=== PATIENT | male | born 1960 | race Caucasian/White ===

== ENCOUNTER 2023-12-27 00:38 | Emergency (ER) | payer MEDICAID, SELFPAY ==
[2023-12-27] VITALS (9 sets, daily range): BP systolic 143–174; BP diastolic 90–110; PULSE 60–83; RESP 18–19; TEMP 36.9–37; O2SAT 88–98; BMI 24.3
--- NOTE | 2023-12-27 00:39 | XR_ITS ---
PROCEDURE INFORMATION: Exam: XR Right Knee Exam date and time: 12/27/2023 12:48 AM Age: 63 years old Clinical indication: Pain; Knee; Right; Additional info: Bumped knee and foot, having pain but ambulating TECHNIQUE: Imaging protocol: Radiologic exam of the right knee. Views: 3 views. COMPARISON: No relevant prior studies available. FINDINGS: Bones/joints: Normal. Soft tissues: Normal. IMPRESSION: No acute findings.
--- NOTE | 2023-12-27 00:42 | HMH.EDGENADL ---
Discharge Plan Disposition Patient Disposition: Home, Self-Care Condition: Good Referrals Follow up/Referrals: Provider,Madeline, [Primary Care Provider] - See instructions Sergio Dubon MD [Staff Physician] - See instructions (needs PCP, has HTN found in ER, has mild kidney dysfunction, no PCP in years) Activity Restrictions/Add. Instructions Additional Instructions/Restrictions: You were evaluated in the ER and are appropriate for discharge at this time. Call Dr. Dubon's office and make an appointment to recheck your blood pressure and kidney function. Return to the ER with new, worsening, or otherwise concerning symptoms. Clinical Impressions Clinical Impression: Knee pain, right, Foot pain, right Print Language Print Language: [place] Discharge ED Provider: Sergio Galo General Adult HPI General Chief complaint: PAIN Stated complaint: R knee pain Time Seen by Provider: 12/27/23 00:42 History of Present Illness HPI narrative: 63-year-old male who reports no known medical problems, no daily medications, no known drug allergies presents to the ER with complaints of right knee pain and right foot pain. Patient was brought in by EMS after being found sitting outside of police station. Ultimately patient requested hospital evaluation. Patient states he had been moving furniture and bumped his right knee. His right foot also has pain. He has been ambulatory. Injury happened 1 to 2 days ago. He has not been taking any medications for his pain. He states the knee was initially swollen but has improved. Patient had reported to EMS that he thought he was exposed to bug spray and could have been exposed to too much of it over 24 hours ago when they treated his apartment, but he does not report any symptoms such as headache, dizziness, sweating, chest pain, difficulty breathing, nausea, vomiting, diarrhea, constipation, dry mouth, numbness, tingling, weakness. He thought he potentially had bug bites but cannot identify any skin changes or rash from these bug bites. His complaint at this time is the right knee pain and foot pain. Related Data Allergies Allergy/AdvReac Type Severity Reaction Status Date / Time No Known Allergies Allergy Verified 12/27/23 01:02 [facility] Disclaimer: The information contained in this section may have been updated after the patient was seen, as this information can be updated by other users. Social History Smoking Status: Unknown if ever smoked alcohol intake: never current occupational status: unemployed Travel in the last 8 weeks: None ROS Obtained: Yes All systems reviewed & no additional complaints except as documented Positive ROS per HPI Physical Exam General General appearance: alert and in no apparent distress Comment: Appears older than stated age Head Head exam: atraumatic and normocephalic Eye Eye exam: Present PERRL and EOMI; Absent conjunctival redness, conjunctival injection or nystagmus ENT ENT exam: Present normal oropharynx and mucous membranes moist Neck Neck exam: Present normal inspection and full ROM; Absent tenderness Chest Chest inspection: Present symmetric chest wall rise; Absent tenderness Respiratory Respiratory exam: Present normal lung sounds bilaterally; Absent respiratory distress, wheezes or stridor Cardiovascular Cardiovascular exam: Present regular rate and normal rhythm Abdominal Exam Abdominal exam: Present soft; Absent distention, tenderness, guarding or rebound Extremities Exam Extremities exam: Present full ROM, tenderness (Mild tenderness with palpation of the right knee, diffuse, also mild tenderness with palpation of the distal right foot. No traumatic findings on exam such as bruising, deformity, crepitus, or swelling) and other (No ligamentous laxity appreciated on exam of the right knee, extensor mechanism intact); Absent edema, joint swelling or calf tenderness Neurological Exam Neurological exam: Present alert, oriented X3, CN II-XII intact and normal gait; Absent motor sensory deficit Psychiatric Psychiatric exam: Present normal affect and normal mood Skin Skin exam: Present warm and dry; Absent rash (No bug bites appreciated on complete skin exam, no rash, no induration, no erythema) or erythema Medical Decision Making Medical Records Screening: Per USPSTF and CDC recommendations, given the prevalence of disease in our region, it is our hospital?s policy to screen for HIV and viral Hepatitis for all patients aged 18 and over and those with ongoing risk factors. Alexis Inquiry Pt receiving controlled substance: No Vital Signs: 12/27/23 00:38 12/27/23 01:00 12/27/23 02:01 Temperature 98.5 F Temperature Source Oral Pulse Rate Pulse Rate [Right Brachial] 83 Respiratory Rate 19 Blood Pressure 164/107 H 152/97 H Blood Pressure [Right Arm] 168/102 H Blood Pressure Mean 126 115 Blood Pressure Mean [Right Arm] 124 Blood Pressure Source Blood Pressure Source [Right Arm] Automatic Cuff Blood Pressure Position Blood Pressure Position [Right Arm] Sitting 02 Sat by Pulse Oximetry 98 Oxygen Delivery Method Room Air 12/27/23 02:31 12/27/23 03:01 12/27/23 03:31 Temperature Temperature Source Pulse Rate 60 62 Pulse Rate [Right Brachial] Respiratory Rate Blood Pressure 147/98 H 143/90 H 168/96 H Blood Pressure [Right Arm] Blood Pressure Mean 124 Blood Pressure Mean [Right Arm] Blood Pressure Source Blood Pressure Source [Right Arm] Blood Pressure Position Blood Pressure Position [Right Arm] 02 Sat by Pulse Oximetry 88 L 94 L Oxygen Delivery Method 12/27/23 04:01 12/27/23 05:00 12/27/23 05:25 Temperature 98.6 F Temperature Source Oral Pulse Rate 68 65 74 Pulse Rate [Right Brachial] Respiratory Rate 18 Blood Pressure 174/110 H 143/90 H Blood Pressure [Right Arm] Blood Pressure Mean Blood Pressure Mean [Right Arm] Blood Pressure Source Automatic Cuff Blood Pressure Source [Right Arm] Blood Pressure Position Supine Blood Pressure Position [Right Arm] 02 Sat by Pulse Oximetry 95 93 L Oxygen Delivery Method Room Air Lab Data Lab Results 12/27/23 01:12: WBC 7.8, RBC 4.37 L, Hgb 12.8 L, Hct 40.0 L, MCV 91.6, MCH 29.4, MCHC 32.1, RDW 14.3, Plt Count 306, MPV 6.9 L, Neut % (Auto) 68.8, Lymph % (Auto) 20.9, [place] % (Auto) 7.2, Eos % (Auto) 2.4, Baso % (Auto) 0.6, Neut # (Auto) 5.4, Lymph # (Auto) 1.6, [place] # (Auto) 0.6, Eos # (Auto) 0.2, Baso # (Auto) 0.1, PT 10.4, INR 0.92, Sodium 136, Potassium 3.7, Chloride 106, Carbon Dioxide 29, Anion Gap 4.7 L, BUN 20, Creatinine 1.70 H, Estimated Creat Clear 39, Estimated GFR 41 L, Est GFR ( Amer) 49 L, Glucose 100, Calcium 9.0, Total Bilirubin 0.7, AST 22, ALT 12, Alkaline Phosphatase 137 H, Total Protein 6.7, Albumin 4.1, Globulin 2.6, Albumin/Globulin Ratio 1.6 12/27/23 03:59: Sodium 134 L, Potassium 3.9, Chloride 108 H, Carbon Dioxide 24, Anion Gap 5.9, BUN 19, Creatinine 1.40 H, Estimated Creat Clear 48, Estimated GFR 51 L, Est GFR ( Amer) 62 D, Glucose 95, Calcium 8.7 12/27/23 01:12 12/27/23 03:59 Orders (Tests/Meds): ED MEDICATIONS Discontinued Medications Generic Name Dose Route Start Last Admin Trade Name Carine PRN Reason Stop Dose Admin Acetaminophen 1,000 mg 12/27/23 01:17 12/27/23 01:19 Acetaminophen 500mg Tab PO 12/27/23 01:18 1,000 mg ONCE ONE Administration Lactated Ringer's 1,000 mls @ 999 mls/hr 12/27/23 02:14 12/27/23 02:16 Lactated Ringer's 1000 Ml Bag IV 12/27/23 03:14 999 mls/hr .Q1H1M ONE Administration Ibuprofen 600 mg 12/27/23 01:17 12/27/23 01:19 Ibuprofen 600 Mg Tablet PO 12/27/23 01:18 600 mg ONCE ONE Administration ORDERS Category Date Time Status Foot XR right minimum 3 views [XR foot RT min 3V] Stat Exams 12/27/23 02:14 Completed Knee XR right 3 views [XR knee RT 3V] Stat Exams 12/27/23 00:39 Completed BMP [Basic Metabolic Panel] Stat Lab 12/27/23 03:59 Completed CBC w/Auto Diff [Complete Blood Count Auto Diff] Stat Lab 12/27/23 01:12 Completed CMP [Comprehensive Metabolic Panel] Stat Lab 12/27/23 01:12 Completed PT INR [Prothrombin Time INR] Stat Lab 12/27/23 01:12 Completed Medical Decision Narrative: In summary, 63-year-old male with no known medical history presents to the emergency department today with primary concerns of right knee pain and right foot pain though he did also report concerns of being exposed to too much bug spray but is asymptomatic. On initial evaluation patient is hemodynamically stable, afebrile, mild tenderness to palpation without traumatic findings of the right knee and foot, patient is ambulatory, no neurologic deficits, thorough physical exam is otherwise benign. I do not appreciate any findings of toxidrome an am reassured that patient is feeling well and well-appearing 24 hours after the potential exposure. Differential diagnosis includes but is not limited to fracture, dislocation, soft tissue injury, sprain, ligamentous injury, I considered the possibility of anemia, electrolyte abnormality, kidney or liver dysfunction if patient did have toxic exposure. UDS unavailable at this time however this would not be valuable in the setting of concern for pesticide toxicity anyway. Many pesticides could cause organophosphate poisoning however there is no evidence of this on exam. Based on these concerns, I ordered basic serum labs, x-ray imaging. Patient received Tylenol, ibuprofen, LR for treatment. Labs personally reviewed demonstrate no leukocytosis, mild anemia, platelets normal, CMP demonstrated creatinine 1.70, no baseline for comparison. Given patient presented with mild hypertension, his elevated creatinine is likely baseline, however fluids are being administered and creatinine will be rechecked. X-rays of the right lower extremity were personally interpreted and do not demonstrate acute osseous injury though there are degenerative changes. See radiology read for final interpretation. On reassessment patient feels improved and is resting comfortably. Recheck BMP demonstrates creatinine improvement to 1.40. Blood pressure has also spontaneously improved in the ER. Vitals and clinical status continued to be stable. No concern for toxidrome. Patient reports his old PCP years ago and he has never established care with a new PCP. He was offered referral within our system which he accepted. He was referred to Dr. Dubon for outpatient follow-up and primary care. Patient is appropriate for discharge at this time. Patient was given instructions on symptomatic management, follow up instructions, and return precautions for the emergency department. Patient indicated understanding and was discharged in stable condition. Critical Care Critical Care Time Critical Care Time: No
--- NOTE | 2023-12-27 00:53 | PC.NURSE ---
Rad at bedside
[2023-12-27] MEDS: ACETAMINOPHEN 500MG TAB 1000 MG PO (01:19)
[2023-12-27] MEDS: IBUPROFEN 600 MG TABLET PO (01:19)
[2023-12-27 01:26] LABS: Basophils # 0.1 K/mm3 (0-0.2); Basophils % 0.6 % (0.1-2.0); Eosinophils # 0.2 K/mm3 (0.0-0.4); Eosinophils % 2.4 % (0.1-12.0); Hemoglobin 12.8 g/dL (14.1-18.0); Lymphocytes # 1.6 K/mm3 (0.7-4.5); Lymphocytes % 20.9 % (10-50); Mean Corpuscular HGB Conc 32.1 g/dL (31.8-35.4); Mean Corpuscular Hemoglobin 29.4 pg (27.0-31.2); Mean Corpuscular Volume 91.6 fl (80-94); Mean Platelet Volume 6.9 fl (7.4-10.4); Monocytes # 0.6 K/mm3 (0.1-1.0); Monocytes % 7.2 % (1.7-9.3); Neutrophils # 5.4 K/mm3 (1.8-7.8); Neutrophils % 68.8 % (37.0-80.0); Platelet Count 306 K/mm3 (142-424); Red Blood Count 4.37 M/mm3 (4.60-6.20); Red Cell Distribution Width 14.3 % (11.5-17.5); White Blood Count 7.8 K/mm3 (4.8-10.8)
[2023-12-27 01:32] LABS: Alanine Aminotransferase 12 U/L (12-78); Albumin Level 4.1 g/dl (3.5-5.0); Albumin/Globulin Ratio 1.6 (1.1-1.8); Alkaline Phosphatase 137 U/L (38-126); Anion Gap 4.7 mEq/L (5-15); Aspartate Amino Transferase 22 U/L (17-59); Bilirubin,Total 0.7 mg/dl (0.2-1.3); Blood Urea Nitrogen 20 mg/dl (9-20); Carbon Dioxide 29 mmol/L (22.0-30.0); Chloride 106 mmol/L (98-107); Creatinine Clearance Estimated 39 mL/min (50-200); Estimated Glomerular Filt Rate 41 ml/min (>60); GFR (African American) 49 ML/MIN (>60); Globulin 2.6 g/dL (1.3-3.2); Glucose 100 mg/dl (74-100); INR 0.92 (0.9-1.1); Potassium 3.7 mmoL/L (3.5-5.1); Prothrombin Time 10.4 seconds (10.1-12.5); Sodium 136 mmol/L (136-145); Total Protein,Serum 6.7 g/dl (6.3-8.2)
--- NOTE | 2023-12-27 02:14 | XR_ITS ---
PROCEDURE INFORMATION: Exam: XR Right Foot Exam date and time: 12/27/2023 2:24 AM Age: 63 years old Clinical indication: Pain; Foot; Right; Additional info: R foot pain TECHNIQUE: Imaging protocol: Radiologic exam of the right foot. Views: 3 or more views. COMPARISON: CR XR KNEE RT 3V 12/27/2023 12:48 AM FINDINGS: Bones/joints: There is a hallux valgus deformity. There is a plantar calcaneal enthesophyte. There is diffuse osseous demineralization. The osseous structures are intact, with no signs of acute fracture, dislocation, or malalignment. Age-related degenerative changes are observed. There is no evidence of abnormal bone density or destructive lesions. Soft tissues: The soft tissues appear within normal limits. IMPRESSION: At the time of imaging, the study shows no acute osseous abnormalities but does reveal signs of age-related degenerative changes.
[2023-12-27] MEDS: LACTATED RINGERS 1000ML 1,000 ML 999 ML IV (02:16)
[2023-12-27 04:46] LABS: Anion Gap 5.9 mEq/L (5-15); Blood Urea Nitrogen 19 mg/dl (9-20); Calcium 8.7 mg/dl (8.4-10.2); Carbon Dioxide 24 mmol/L (22.0-30.0); Chloride 108 mmol/L (98-107); Creatinine Clearance Estimated 48 mL/min (50-200); Estimated Glomerular Filt Rate 51 ml/min (>60); GFR (African American) 62 ML/MIN (>60); Glucose 95 mg/dl (74-100); Potassium 3.9 mmoL/L (3.5-5.1); Sodium 134 mmol/L (136-145)
--- NOTE | 2023-12-27 12:08 | SW/DCPLANNER ---
I was contacted by Tracee Sanon regarding transportation needed for this patient. I have arranged [employer] [employer]: confirmation number [id number] . Per [employer] patient will be picked up around 1:30PM.
== END 2023-12-27 05:48 | disposition home or self-care (01) ==
PROVIDERS: Emergency Provider Emergency Medicine
DX: M25.561 Pain in right knee (principal); M79.671 Pain in right foot
CPT/HCPCS: 73562; 73630; 80048; 80053; 85025; 85610; 96360; 99284; J7120

== ENCOUNTER 2024-08-29 16:30 | Outpatient (CLI) | payer MEDICAID, SELFPAY ==
[2024-08-29 18:41] LABS: Basophils # 0.1 K/mm3 (0-0.2); Basophils % 0.8 % (0.1-2.0); Eosinophils # 0.4 Kmm3 (0.0-0.4); Eosinophils % 5.6 % (0.1-12.0); Hematocrit 45.4 % (42.0-52.0); Hemoglobin 13.8 g/dL (14.1-18.0); Immature Granulocytes # 0.03 10^3uL; Immature Granulocytes % 0.4 %; Lymphocytes # 1.4 K/mm3 (0.7-4.5); Mean Corpuscular HGB Conc 30.4 g/dL (31.8-35.4); Mean Corpuscular Hemoglobin 25.4 pg (27.0-31.2); Mean Corpuscular Volume 83.6 fl (80-94); Mean Platelet Volume 9.5 fl (7.4-10.4); Monocytes # 0.6 K/mm3 (0.1-1.0); Monocytes % 8.1 % (1.7-9.3); Neutrophils # 5.3 K/mm3 (1.8-7.8); Neutrophils % 67.1 % (37.0-80.0); Nucleated Red Blood Cells # 0 10^3/uL; Nucleated Red Blood Cells % 0 %; Platelet Count 331 K/mm3 (142-424); Red Blood Count 5.43 M/mm3 (4.60-6.20); Red Cell Distribution Width 16.4 % (11.5-17.5); Red Cell Distribution Width-SD 49.5 fL; White Blood Count 7.9 K/mm3 (4.8-10.8)
[2024-08-29 19:15] LABS: Alanine Aminotransferase 9 U/L (12-78); Albumin Level 4.5 g/dl (3.5-5.0); Alkaline Phosphatase 142 U/L (38-126); Anion Gap 12.5 mEq/L (5-15); Aspartate Amino Transferase 16 U/L (17-59); Bilirubin,Total 0.5 mg/dl (0.2-1.3); Blood Urea Nitrogen 21 mg/dl (9-20); Calcium 9.3 mg/dl (8.4-10.2); Carbon Dioxide 23 mmol/L (22.0-30.0); Chloride 110 mmol/L (98-107); Estimated Glomerular Filt Rate 61 ml/min (>60); GFR (African American) 73 ML/MIN (>60); Globulin 2.3 g/dL (1.3-3.2); Glucose 100 mg/dl (74-100); Potassium 4.5 mmoL/L (3.5-5.1); Sodium 141 mmol/L (136-145); Total Protein,Serum 6.8 g/dl (6.3-8.2)
[2024-08-29 19:41] LABS: Prostate Specific Ag Screen 3.4 ng/ml (0.0-4.0); Thyroid Stimulating Hormone 1.31 uIU/mL (0.465-4.68)
[2024-08-29 20:00] LABS: Vitamin B12 806 pg/mL (239-931)
== END 2024-08-29 23:59 | disposition home or self-care (01) ==
LOC: LAB.DROPOF 08-30 11:03
PROVIDERS: PCP Family Medicine; Visit Provider Family Medicine
DX: N40.0 Benign prostatic hyperplasia without lower urinary tract symptoms (principal); F25.9 Schizoaffective disorder, unspecified; F15.10 Other stimulant abuse, uncomplicated; F12.10 Cannabis abuse, uncomplicated
CPT/HCPCS: 80053; 82607; 84443; 85025; G0103